=== PATIENT | male | born 1985 | race Hispanic/Latino ===

== ENCOUNTER 2018-06-17 15:54 | Emergency (ER) | payer OTHER ==
[2018-06-17] MEDS ORDERED: Tdap Vaccine 0.5 ml Vial (10-64 yrs) IM ONE ×2 (16:33→16:43)
--- NOTE | 2018-06-17 16:33 | ED PDOC ---
HPI: Skin/Bite Injury Chief Complaint (Nursing): Bite Chief Complaint (Provider): Bite History Per: Patient History/Exam Limitations: no limitations Onset/Duration Of Symptoms: Days (X2) Current Symptoms Are (Timing): Still Present Location Of Injury: Right: Leg (calf) Additional Complaint(s): 32 year old male with a past medical history of Tetralogyof Fallot presents to the ED with a right calf dog bite onset X2 days. Patient reports that he was visiting his friend who has two dogs in [facility]. Patient reports that he went to go say hi to his friend and one of his dogs came behind him and bit the back of his upper right calf. Patient claims that he immediately soaked the bite in water after the incident. Patient states that he had jeans and subjectively states that teeth didn't go through. However it is still questionable if teeth went through. Patient states that he applied Neosporin and applied a bandage to the bite and kept it covered since. Patient states his friend said that his dogs are vaccinated. Patient was unsure of his tetanus status and called his PMD this morning. Patient's PMD stated that his tetanus was outdated. PMD: Vinh Mclain MD Past Medical History Reviewed: Historical Data, Nursing Documentation, Vital Signs Vital Signs: Last Vital Signs Temp 99.1 F 06/17/18 16:05 Pulse 106 H 06/17/18 16:05 Resp 19 06/17/18 16:05 BP 157/105 H 06/17/18 16:05 Pulse Ox 99 06/17/18 16:05 NEEL Report Viewed: Yes - Medical History PMH: No Chronic Diseases Denies: Chronic Kidney Disease - Surgical History Other surgeries: Tetralogy of Fallot repair - Family History Family History: States: No Known Family Hx - Social History Current smoker - smoking cessation education provided: No Alcohol: Social Drugs: Denies - Home Medications Home Medications: Ambulatory Orders Medication Instructions Recorded Amoxicillin/Clavulanate [Augmentin 1 tab PO Q12H #10 tab 06/17/18 875 MG-125 MG] - Allergies Allergies/Adverse Reactions: Allergies Allergy/AdvReac Type Severity Reaction Status Date / Time No Known Allergies Allergy Verified 06/17/18 16:09 Review of Systems ROS Statement: Except As Marked, All Systems Reviewed And Found Negative Musculoskeletal: Positive for: Other (right upper calf dog bite) Physical Exam - Reviewed Nursing Documentation Reviewed: Yes Vital Signs Reviewed: Yes - Physical Exam Appears: Positive for: Well Head Exam: Positive for: ATRAUMATIC, NORMOCEPHALIC Skin: Positive for: Normal Color, Warm, Dry Eye Exam: Positive for: Normal appearance, EOMI, PERRL Neck: Positive for: Normal Cardiovascular/Chest: Positive for: Regular Rate, Rhythm. Negative for: Murmur Respiratory: Positive for: Normal Breath Sounds. Negative for: Respiratory Distress Gastrointestinal/Abdominal: Positive for: Normal Exam, Soft. Negative for: Tenderness Extremity: Positive for: Other (dog bite to upper aspect of the calf, with echymosis surrounded to the area. Redness to the teeth de la cruz. No pain to calf area ) Neurological/Psych: Positive for: Awake, Alert, Normal Tone. Negative for: Motor/Sensory Deficits - ECG O2 Sat by Pulse Oximetry: 99 (RA) Pulse Ox Interpretation: Normal Medical Decision Making Medical Decision Making: Time: 16:33 Initial Impression: Dog bite Plan: -Adacel (10-64 yrs) 0.5 ml IM ONCE ONE -re-evaluate 16:42 Upon provider evaluation patient is medically stable, and requires no further treatment in the ED at this time. Patient will be discharged home with Augmentin. Counseling was provided and all questions were answered regarding diagnosis,patient is in agreement and states understanding. Return to ED if symptoms persist or worsen. Scribe Attestation: Documented by Rosa Mcleod, acting as a scribe Josias DOOLEY Provider Scribe Attestation: All medical record entries made by the Scribe were at my direction and personally dictated by me. I have reviewed the chart and agree that the record accurately reflects my personal performance of the history, physical exam, medical decision making, and the department course for this patient. I have also personally directed, reviewed, and agree with the discharge instructions and disposition. Disposition - Clinical Impression Clinical Impression: Animal bite wound - Patient ED Disposition Is Patient to be Admitted: No Counseled Patient/Family Regarding: Diagnosis, Rx Given - Disposition Disposition: Routine/Home Disposition Time: 16:31 Condition: GOOD Prescriptions: Amoxicillin/Clavulanate [Augmentin 875 MG-125 MG] 1 tab PO Q12H #10 tab Instructions: Animal Bites (DC) Print Language: CONGOLESE - POA Present On Arrival: None
[2018-06-17 16:59] VITALS: BP 139/88; PULSE 92; RESP 18; TEMP 98.8
[2018-06-17 17:29] VITALS: O2SAT 99
== END 2018-06-17 16:55 | disposition home or self-care (01) ==
LOC: H.ER 15:54
DX: S81.851A Open bite, right lower leg, initial encounter (principal); W54.0XXA Bitten by dog, initial encounter; Z23 Encounter for immunization